=== PATIENT | female | born 1975 | race Hispanic/Latino ===

== ENCOUNTER 2017-09-19 21:10 | Observation (INO) | payer SELFPAY ==
[~2017-09-19] VITALS: Ht 162.6 cm; Wt 88.0 kg
[2017-09-19 21:58] LABS: APPEARANCE,URINE Clear (CLEAR); BILIRUBIN,URINE Negative (NEGATIVE); COLOR,URINE Dark Yellow (YELLOW); GLUCOSE, URINE (UA) Negative (NEGATIVE); KETONES,URINE 40 mg/dL (NEGATIVE); LEUKOCYTE ESTERASE ,URINE Negative (NEGATIVE); NITRATE,URINE Negative (NEGATIVE); OCCULT BLOOD,URINE Negative (NEGATIVE); PH,URINE 6.5 (5.0-8.0); PROTEIN,URINE Trace (NEGATIVE)
[2017-09-19 22:04] LABS: BACTERIA,URINE Rare /HPF (None Seen); MUCUS,URINE Few LPF (None Seen); RBC,URINE None Seen /HPF (0-1); WBC,URINE None Seen /HPF (0-1)
[2017-09-19 22:25] LABS: AMPHET/METH SCREEN,URINE NEGATIVE (NEGATIVE); BARBITURATE SCREEN, URINE NEGATIVE (NEGATIVE); BENZODIAZEPINES SCREEN,URINE NEGATIVE (NEGATIVE); CANNABINOID SCREEN,URINE NEGATIVE (NEGATIVE); COCAINE SCREEN,URINE NEGATIVE (NEGATIVE); OPIATE SCREEN,URINE NEGATIVE (NEGATIVE); PHENCYCLIDINE SCREEN,URINE NEGATIVE (NEGATIVE)
[2017-09-19] MEDS ORDERED: LACTATED RINGERS 1000ML IV STA (22:39)
[2017-09-19] MEDS ORDERED: LACTATED RINGERS 1000ML 1,000 ML IV SCH (23:00)
== END 2017-09-19 23:45 | disposition home or self-care (01) ==
LOC: EDH 21:10 → LDH 21:11
PROVIDERS: ADMIT Obstetrics & Gynecology; ATTEND Obstetrics & Gynecology
DX: O26.893 Other specified pregnancy related conditions, third trimester (principal); O09.523 Supervision of elderly multigravida, third trimester; R10.9 Unspecified abdominal pain; R51 Headache; Z3A.30 30 weeks gestation of pregnancy
CPT/HCPCS: 80305; 81001; 96360; 99285; G0378 ×3